=== PATIENT | female | born 1955 | race Caucasian/White ===

== ENCOUNTER 2019-09-06 07:17 | Observation (INO) | payer MEDICARE, OTHER ==
--- NOTE | 2019-09-05 13:02 | Diagnostic Imaging Report ---
EXAM: CHEST 2 VIEWS DATE: 09/05/2019 12:21 PM INDICATION: Preoperative evaluation COMPARISON: None FINDINGS: The trachea is midline. The lungs are symmetrically expanded without evidence for large focal consolidation, pneumothorax, or significant pleural effusion. The cardiomediastinal silhouette and pulmonary vasculature are within normal limits. No acute osseous abnormality is identified. The surrounding soft tissues are unremarkable. IMPRESSION: No acute cardiopulmonary process identified. Signed by: Dr. Kenneth Cruz MD on 09/05/2019 1:00 PM
[2019-09-05 13:20] LABS: INR 0.88; PROTHROMBIN TIME 12.5 seconds (11.9-14.5)
[2019-09-05 13:21] LABS: BASOPHILS # (AUTO) 0.1 (0.0-0.1); BASOPHILS % 0.8 % (0.0-1.0); EOSINOPHILS # (AUTO) 0.2 (0.0-0.4); EOSINOPHILS % 2.2 % (0.0-6.0); HEMATOCRIT 44.5 % (34.2-44.1); HEMOGLOBIN 14.8 g/dL (12.0-16.0); LYMPHOCYTES # (AUTO) 3.1 (1.0-3.2); LYMPHOCYTES % 28.9 % (18.0-39.1); MEAN CORPUSCULAR HEMOGLOBIN 29.9 pg (28-32); MEAN CORPUSCULAR HGB CONC 33.3 g/dL (31-35); MEAN CORPUSCULAR VOLUME 89.9 fL (81-99); MONOCYTES # (AUTO) 0.9 (0.2-0.8); MONOCYTES % 8.1 % (4.4-11.3); NEUTROPHILS # (AUTO) 6.3 (2.1-6.9); NEUTROPHILS % 59.6 % (38.7-80.0); PLATELET COUNT 293 x10e3/uL (140-360); RED BLOOD COUNT 4.95 x10e6/uL (3.6-5.1); RED CELL DISTRIBUTION WIDTH 12.8 % (11.7-14.4)
[2019-09-05 13:27] LABS: ALBUMIN/GLOBULIN RATIO 1.1 (0.8-2.0); ANION GAP 12.7 mmol/L (8-16); CALCIUM 10.5 mg/dL (8.4-10.2); CREATININE, SERUM 1.13 mg/dL (0.57-1.11); POTASSIUM 4.7 mmol/L (3.5-5.1)
[~2019-09-06] VITALS: Ht 170.2 cm; Wt 66.2 kg
[~2019-09-06 07:17] MED LIST: CRESTOR10 MG PO; FLECTOR1 EACH TOP; GABAPENTIN300 MG PO; LISINOPRIL10 MG PO; LORAZEPAM2 MG/1 M1 PO; METOPROLOL SUCC50 MG PO; NIFEDIPINE ER30 M1 PO; TRAZODONE HCL50 MG PO; VITAMIN D325 GM PO
[2019-09-06] MEDS ORDERED: ACETAMINOPHEN 1000 MG/100 ML 100 ML IV ONE (07:23)
[2019-09-06] MEDS ORDERED: LIDOCAINE HCL (LTA) 4 ML SOLN ONE (07:24)
--- OUTSIDE RECORDS SUMMARY | 2019-09-06 07:24 | XMS REPORT ---
Author Author [facility] Address Unknown Phone Unavailable Care Team Providers Care Stamper Blocker Name Role Phone ROCHELLE RUDOLPH Unavailable Unavailable Problems This patient has no known problems. Allergies, Adverse Reactions, Alerts This patient has no known allergies or adverse reactions. Medications This patient has no known medications. Results Test Description Test Time Test Comments Text Results Atomic Results Result Comments CHEST 2 VIEWS 2019-09-05 12:59:00 [facility] [address] [address] Patient Name: EFRAIN GUSMAN MR #: [id number] : 1955 Age/Sex: 64/F Req #: [id number] Adm Physician: Ordered by: ROCHELLE RUDOLPH MD Report #: [id number] Location: OR Room/Bed: Procedure: [id number] DX/CHEST 2 VIEWS Exam Date: 09/05/19 Exam Time: 1240 REPORT STATUS: Signed EXAM: CHEST 2 VIEWS DATE: 09/05/2019 12:21 PM IN DICATION: Preoperative evaluation COMPARISON: None FINDINGS: The trachea is midline. The lungs are symmetrically expanded without evidence for large focal consolidation, pneumothorax, or significant pleural effusion. The cardiomediastinal silhouette and pulmonary vasculature are within normal limits. No acute osseous abnormality is identified. The surrounding soft tissues are unremarkable. IMPRESSION: No acute cardiopulmonary process identified. Signed by: Dr. Kenneth Sims MD on 09/05/2019 1:00 PM Dictated By: KENNETH SIMS MD 1300 Transcribed By: NIDHI on 09/05/19 1300 COPY TO: ROCHELLE RUDOLPH MD
[2019-09-06] MEDS ORDERED: LIDOCAINE 1% W/EPINEPHRINE 20 ML VIAL ONE (08:19)
[2019-09-06] MEDS ORDERED: THROMBIN FOR SOLN 5,000 UNIT VIAL ONE (08:19)
[2019-09-06] MEDS ORDERED: BACITRACIN 50,000 UNIT VIAL ONE (08:19)
[2019-09-06] MEDS ORDERED: CEFAZOLIN SOD 1 GM/NS 50ML 50 ML IV ONE (08:40)
[2019-09-06] MEDS ORDERED: LACTATED RINGER'S 1,000 ML IV SCH (11:08)
[2019-09-06] MEDS ORDERED: SUGAMMADEX SODIUM 200 MG/2 ML VIAL IV ONE (11:14)
[2019-09-06] MEDS ORDERED: PROMETHAZINE HCL (IM) 25 MG/ML VIAL IM PRN (11:15)
[2019-09-06] MEDS ORDERED: HYDROMORPHONE 2MG/ML 2 MG/ML ML IV PRN (11:15)
[2019-09-06] MEDS ORDERED: MORPHINE SULFATE 5 MG/ML VIAL IM PRN (11:15)
[2019-09-06] MEDS ORDERED: CEPACOL SORE THROAT LOZENGES PO PRN (11:15)
[2019-09-06] MEDS ORDERED: ONDANSETRON HCL INJ 2MG/ML 2ML 2 MG/ML VIAL IV PRN (11:15)
[2019-09-06] MEDS ORDERED: MAGNESIUM/ALUMINUM/SIMETHICONE 30 ML UDC PO PRN (11:15)
[2019-09-06] MEDS ORDERED: ACETAMINOPHEN 325 MG TAB PO PRN (11:15)
[2019-09-06] MEDS ORDERED: HYDROMORPHONE 1MG/1ML INJ ONE (12:20)
--- NOTE | 2019-09-06 13:20 | NUR ---
RECEIVED TO RM AAOX3, DENIES PAIN AT THIS TIME, UPDATED ON POC VOCIED UNDERSTANDING, IVF INFUSING TO R WRIST 20G, DSG TO ANTERIOR CERVICAL C/D/I HARD COLLAR IN PLACE NO OTHER CO VOICED CALL LIGHT IN REACH WILL CONTINUE TO MONITOR
[2019-09-06 14:06] VITALS: BP 173/73
[2019-09-06] MEDS ORDERED: MORPHINE SULFATE INJ 10 MG/ML ONE (14:25)
[2019-09-06] MEDS ORDERED: MIDAZOLAM HCL 2 MG/2 ML VIAL ONE (14:25)
[2019-09-06] MEDS ORDERED: FENTANYL CITRATE/PF 100MCG/2 ML INJ ONE (14:25)
[2019-09-06 14:27] VITALS: BP 173/73
[2019-09-06] MEDS ORDERED: TYLENOL WITH C1 EACH PO (14:37)
[2019-09-06] MEDS: CARISOPRODOL 350 MG TAB PO PRN ×2 (15:25→21:45)
--- NOTE | 2019-09-06 17:07 | Operative Report ---
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 POSTOPERATIVE DIAGNOSIS: C5-6 and C6-C7 spondylosis with myelopathy, M5 0.020. PROCEDURES PERFORMED: 1. C5-6 anterior cervical diskectomy and microsurgical osteophyte resection and allograft fusion, 14092. 2. C6-7 anterior cervical diskectomy and microsurgical osteophyte resection, allograft fusion, . 3. Preparation of tricortical iliac crest allograft, . 4. C5-C6 and C6-C7 anterior cervical plating with Synthes CSLP plate, [id number]. ANESTHESIA: General. INDICATIONS: The patient is a 64-year-old woman who presents with C5-C6 and C6-C7 spondylosis and myelopathy and was taken to the operating room for anterior cervical decompression and fusion. PROCEDURE IN DETAIL: After induction of general anesthesia, the patient was placed on the operating table in supine position. The right side of the neck was prepped and draped in sterile fashion. The fluoroscopic C-arm was positioned in cross-table lateral orientation. A transverse incision was created on right side of neck. The platysma was divided in line with the incision. A subplatysmal dissection was carried out and avascular plane of dissection was developed medially. Sternomastoid muscle was followed medial to the carotid sheath to the anterior border of cervical spine. The deep cervical fascia was opened. The esophagus was retracted to the left. The attachments of longus colli muscles to the anterolateral aspects of vertebral bodies of C5, C6, and C7 were divided. The anterior longitudinal ligament was resected. [place] posts were inserted into C5 and C7. The [place] distractor was used to distract both disk spaces simultaneously. The anterior annuli of disks were incised with a #11 blade. The contents of both disks were thoroughly evacuated with angled curettes and pituitary rongeurs. The posterior osteophytes were meticulously drilled with a 2 mm cutting bur on a high-speed drill until they were completely removed. The posterior annulus of the disk, herniated disk material, and the posterior longitudinal ligament were resected layer by layer into the dura was fully exposed and decompressed. The medial aspects of the uncinate processes were resected bilaterally to further expose any compressed origins of the corresponding nerve roots. After satisfactory decompression was obtained, the endplates were prepared for fusion. A piece of tricortical iliac crest allograft was cut to the size and shapes of the disk spaces and inserted into the C5-C6 and C6-C7 disk spaces under distraction and fluoroscopic guidance. The distraction was released and distraction posts were removed. A Synthes CSLP variable type anterior cervical plate was selected and was affixed to vertebral bodies of C5, C6 and C7 with three pairs of 14 x 4.35 mm screws. All screw holes were first drilled and tapped on the lateral fluoroscopic guidance. All screws were locked with the appropriate locking screws. An excellent construct was obtained. The wound was copiously irrigated with bacitracin solution. Meticulous hemostasis was secured. Retractor was removed. The platysma was closed with 3-0 Vicryl sutures. The skin was closed with 4-0 Monocryl sutures in subcuticular fashion. Steri-Strips and dressing were applied. The patient was awakened, extubated, and taken to postanesthesia care unit in stable condition. No intraoperative complications were encountered. ESTIMATED BLOOD LOSS: 20 cc. Russell Vernon MD PP/EL /[id number]
[2019-09-06] MEDS: CEFAZOLIN SOD 1 GM/NS 50ML 50 ML IV SCH (18:00)
[2019-09-06] MEDS: GABAPENTIN 300 MG CAP PO SCH (18:14)
[2019-09-06] MEDS: OXYCODONE/ACETAMINOPHEN 5-325 1 EACH TABLET PO PRN ×2 (18:16→21:45)
--- NOTE | 2019-09-06 19:00 | NUR ---
RECEIVED PATIENT IN BEDSIDE SHIFT REPORT. PATIENT RESTING IN BED AT THIS TIME, NO PAIN REPORTED. HARD COLLAR TO NECK. NO S&S OF DISTRESS NOTED. BED LOCKED IN LOWEST POSITION, SIDE RAILS UPX2, CALL LIGHT IN REACH.
[2019-09-06] MEDS ORDERED: DEXAMETHASONE SOD PHOS INJ 4 MG/ML VIAL ONE (19:40)
[2019-09-06] MEDS ORDERED: ROCURONIUM BROMIDE 10 MG/ML 5ML VIAL ONE (19:40)
[2019-09-06] MEDS ORDERED: NEOSTIGMINE 1 MG/ML 10ML VIAL ONE (19:40)
[2019-09-06] MEDS ORDERED: ONDANSETRON HCL INJ 2MG/ML 2ML 2 MG/ML VIAL ONE (19:40)
[2019-09-06] MEDS ORDERED: SEVOFLURANE INHAL SOLN 250 ML PEN BTL ONE (19:40)
[2019-09-06] MEDS ORDERED: EPHEDRINE SULFATE INJ 50 MG/ML VIAL ONE (19:40)
[2019-09-06] MEDS ORDERED: LIDOCAINE HCL 2% JELLY 5 ML TUBE ONE (19:40)
[2019-09-06] MEDS ORDERED: ALBUTEROL SULFATE HFA 8GM INHALATION AEROSOL INH ONE (19:40)
[2019-09-06] MEDS ORDERED: PROPOFOL IV EMULSION 10 MG/ML 20 ML VIAL ONE (19:40)
[2019-09-06] MEDS ORDERED: LIDOCAINE HCL 2% LOCAL INJ 5 ML SDV VIAL INJ ONE (19:40)
[2019-09-06] MEDS ORDERED: GLYCOPYRROLATE INJ 0.2 MG/ML VIAL ONE (19:40)
[2019-09-06 20:00] VITALS: BP 195/85
[2019-09-06] MEDS ORDERED: NIFEDIPINE CR 30 MG TAB PO SCH (21:00)
[2019-09-06] MEDS ORDERED: ZOLPIDEM TARTRATE 5 MG TAB PO PRN (21:00)
[2019-09-06] MEDS ORDERED: LISINOPRIL 20 MG TAB PO SCH (21:00)
[2019-09-06] MEDS ORDERED: SIMVASTATIN 40 MG TAB PO SCH (21:00)
[2019-09-06] MEDS ORDERED: TRAZODONE HCL 50 MG TAB PO SCH (21:00)
[2019-09-06] MEDS ORDERED: LISINOPRIL 10 MG TAB PO SCH (21:00)
[2019-09-06] MEDS ORDERED: SIMVASTATIN 20 MG TAB PO SCH (21:00)
[2019-09-06] MEDS ORDERED: METOPROLOL SUCCINATE 50 MG TAB XL PO SCH (21:00)
[2019-09-06 21:29] VITALS: BP 195/85
[2019-09-07] VITALS: BP 140/65
[2019-09-07] MEDS: CEFAZOLIN SOD 1 GM/NS 50ML 50 ML IV SCH ×2 (01:34→09:34)
[2019-09-07 04:00] VITALS: BP 129/58
--- NOTE | 2019-09-07 07:02 | Diagnostic Imaging Report ---
Cervical Spine Two Views CPT code: 10099 Indication: Status post surgery Technique: AP, swimmer's and lateral views of cervical spine obtained through a cervical collar. Comparison: None Findings: Cervical vertebral bodies can be visualized to C7. The patient is status post anterior cervical discectomy and fusion from C5 to C7. Anterior fusion plate is intact. Cervical vertebral bodies are in anatomic alignment. There is diffuse prevertebral soft tissue swelling. Vertebral body heights are symmetric. Alignment is maintained on the AP view. Lateral masses of C1 are obscured due to the occiput. The skull base and upper chest are normal. IMPRESSION: Postoperative changes of the cervical spine with prevertebral soft tissue swelling. Cervical vertebral bodies are in anatomic alignment. Signed by: Dr. Angélica Frnaco MD on 09/07/2019 6:59 AM
[2019-09-07] MEDS: OXYCODONE/ACETAMINOPHEN 5-325 1 EACH TABLET PO PRN (07:29)
--- NOTE | 2019-09-07 07:31 | NUR ---
Received patient and a/ox3, no resp distress, cervical collar in place, pains well managed, will monitor.
[2019-09-07 07:59] VITALS: BP 141/64
[2019-09-07] MEDS ORDERED: NORCO 7.5-3251 EACH PO (08:14)
[2019-09-07 08:25] VITALS: BP 141/64
[2019-09-07] MEDS: GABAPENTIN 300 MG CAP PO SCH (08:58)
[2019-09-07] MEDS ORDERED: CHOLECALCIFEROL 1,000 UNIT TAB PO SCH (09:00)
[2019-09-07] MEDS ORDERED: NON-FORMULARY MEDICATION (Cholecalciferol (Vitamin D3) (Vitamin D3) 50 MCG) PO SCH (09:00)
--- NOTE | 2019-09-07 11:09 | NUR ---
Patient stable, cervical x-ray this morning with Postoperative changes of the cervical spine with prevertebral soft tissue swelling. Cervical vertebral bodies are in anatomic alignment. Provided with discharge summary, prescriptions and patient to f/u with surgeon, follow discharge instructions pertaining to use of cervical collar. IV line removed, cath tip in place, dressing applied.
== END 2019-09-07 11:14 | disposition home or self-care (01) ==
LOC: OR 07:17 → PACU V 11:10 → MED/SURG 13:27
PROVIDERS: ADMIT Neurological Surgery; ATTEND Neurological Surgery
DX: M50.022 Cervical disc disorder at C5-C6 level with myelopathy (principal); Z88.8 Allergy status to other drugs, medicaments and biological substances; Z01.810 Encounter for preprocedural cardiovascular examination; Z01.812 Encounter for preprocedural laboratory examination; Z01.811 Encounter for preprocedural respiratory examination; N18.3 Chronic kidney disease, stage 3 (moderate); E78.5 Hyperlipidemia, unspecified; J44.9 Chronic obstructive pulmonary disease, unspecified; Z86.19 Personal history of other infectious and parasitic diseases; K21.9 Gastro-esophageal reflux disease without esophagitis; I12.9 Hypertensive chronic kidney disease with stage 1 through stage 4 chronic kidney disease, or unspecified chronic kidney disease
CPT/HCPCS: 20931; 22551; 22552; 22845; 36415; 71046; 72040; 80053; 85025; 85610; 85730; 86850; 86900; 88304; 89060; 93005; C1713 ×4; C1768; G0378 ×2; J0131; J0690 ×2; J1100; J1170; J2001 ×2; J2250; J2270; J2405; J2704; J2710; J3010; 77003